=== PATIENT | male | born 1955 | race Caucasian/White ===

== ENCOUNTER 2017-10-08 10:34 | Observation (INO) ==
[2017-10-08] MEDS ORDERED: 0.9 % Sodium Chloride 1,000 ML IVC ONE (11:02)
[2017-10-08] MEDS ORDERED: Ondansetron 4 MG/2 ML VIAL IVP ONE (11:03)
--- NOTE | 2017-10-08 11:32 | Emergency Department Note ---
Disposition Clinical Impression: Weakness generalized, Opioid withdrawal, Hyponatremia, Abscess Disposition: Admitted As Inpatient Condition: Fair Time of Disposition: 15:16 General Adult HPI - General Chief complaint: ED Shortness of Breath/Dyspnea Stated complaint: cough,weakness Time Seen by Provider: 10/08/17 11:01 Source: EMS Limitations: no limitations Nursing Notes Reviewed: Yes Vital Signs Reviewed: Yes - History of Present Illness HPI Narrative: Patient is a 62-year-old male who presents to [facility] ED with a chief complaint of cough, generalized weakness. Patient admits to being an IV drug abuser. Most recently used heroin 1 week ago. States he feels like he is in withdrawal. Patient is tachycardic and feeling nauseated. States he has not been able to tolerate anything by mouth over the last several days. Denies being to the hospital in the past and does not have a primary care physician. Onset (ago): day(s) Radiation: non-radiation Pain Scale: 0 Consistency: constant Improves with: nothing Worsens with: nothing Associated symptoms: Reports: chest pain Treatments Prior to Arrival: none - Related Data Home Medications Medication Instructions Recorded Confirmed No Known Home Drugs 10/08/17 10/08/17 Allergies Allergy/AdvReac Type Severity Reaction Status Date / Time No Known Allergies Allergy Verified 10/08/17 10:41 All systems ED: reviewed and negative except as stated. Past Medical History - Past Medical History Attestation: Yes The following information was validated with the patient. Source: patient Medical history: Reports: no medical history Psychiatric history: Reports: no psych history - Social History Smoking Status: Current every day smoker Smokeless Tobacco Status: No Alcohol use: Reports: none Drug use: Reports: methamphetamine Physical Exam - General Limitations: no limitations General appearance: alert, in no apparent distress - Head Head exam: atraumatic, normocephalic, normal inspection - Eye Eye exam: Present: normal appearance, EOMI - ENT ENT exam: normal exam, normal oropharynx, mucous membranes moist - Neck Neck exam: Present: normal inspection, full ROM, trachea midline - Chest Chest inspection: Present: normal inspection, symmetric chest wall rise - Respiratory Respiratory exam: Present: normal lung sounds bilaterally - Cardiovascular Cardiovascular exam: Present: normal rhythm, tachycardia - Abdominal Exam Abdominal exam: Present: soft, Non-Tender. Absent: tenderness, distention, guarding, rebound, rigidity - Extremities Exam Extremities exam: Present: normal inspection, full ROM. Absent: tenderness, pedal edema - Back Exam Back exam: Present: normal inspection, full ROM. Absent: tenderness - Neurological Exam Neurological exam: Present: alert, oriented X3, other (generalized weakness) - Psychiatric Psychiatric exam: Present: normal affect, normal mood - Skin Skin exam: Present: warm, dry, intact, normal color, other (3 cm abscess overlying the right medial clavicle ) Course Course Narrative: Patient seen and examined. Cough, chest pain, generalized weakness. History of IV drug abuse. Concern for some withdrawal from heroin. We will start a peripheral IV line, given a liter IV fluid bolus and reassess vitals. BMP and troponin ordered. - Reevaluation(s) Reevaluation #1: Labwork shows hyponatremia with a corrected sodium of 128. Patient has received a 1 L bolus already. He is still feeling persistently nauseated. 8mg zofran ordered. Pt unable to tolerate PO challenge. Discussed with hospitalist who has accepted pt for admission. Will I&D abscess. Per hospitalist, would like aerobic and anaerobic cultures. Bactrim ordered. Time: 15:15 Vital Signs Temperature 98.2 F 10/08/17 10:42 Pulse Rate 102 10/08/17 10:42 Respiratory Rate 20 10/08/17 10:42 Blood Pressure 130/88 10/08/17 10:42 O2 Sat by Pulse Oximetry 94 10/08/17 10:42 Temperature 98.1 F 10/08/17 17:28 Pulse Rate 106 10/08/17 17:28 Respiratory Rate 16 10/08/17 17:28 Blood Pressure 117/77 10/08/17 17:28 O2 Sat by Pulse Oximetry 93 10/08/17 17:28 Oxygen Delivery Oxygen Delivery Room Air Procedures - Abscess I/D Consent obtained: verbal consent Site: chest Side (if applicable): right Local Anesthetic: lidocaine 1% Amount of Anesthesia Used (mL): 1 Technique: incised with #11 blade Packing used?: none Medical Decision Making - Medical Records Medical records reviewed: Yes I reviewed the patient's medical records. - Lab Data Lab results reviewed: Yes I reviewed the patient's lab results. Result diagrams: 10/08/17 15:40 10/08/17 16:16 Lab Results 10/08/17 10/08/17 Range/Units 10:49 11:10 Sodium 123 L (136-145) mEq/L Potassium 4.3 (3.5-5.1) mEq/L Chloride 91 L (98-107) mEq/L Carbon Dioxide 19 L (23-29) mEq/L BUN 27 H (8-23) mg/dL Creatinine 0.68 L (0.70-1.30) mg/dL Est GFR ( Amer) > 60 (> 60) Est GFR (Non-Af Amer) > 60 (> 60) BUN/Creatinine Ratio 40 H (6-26) Glucose 391 H (70-105) mg/dL POC Glucose 381 H (58-89) Calculated Osmolality 277 L (280-300) Calcium 9.0 (8.6-10.3) mg/dL Troponin I 0.03 (< 0.04) ng/mL - Radiology Data Radiology results reviewed: Yes I reviewed the patient's radiology results. Chest X-Ray 10/08/17 11:03 IMPRESSION: No acute process. D/ / 10/08/2017 12:23:26 Benjamin Quijano MD / latisha Interpreting Provider: Benjamin Quijano MD - EKG Data EKG #1 EKG attestation: Yes I reviewed and interpreted this EKG. EKG results narrative: EKG done at 1043 shows sinus tachycardia with a rate of [address] elevation or depression. Normal axis. No prior EKG for comparison. Attestation Statement - Attestation Attestation: I examined this patient and my medical decision-making was reviewed with the Resident Physician. I agree with the documented findings, disposition and treatment plan as described except to the extent set forth below. Hyponatremia still 127 after correction for hyperglycemia. 7d since last heroin dose, typical withdrawal symtoms. Significant hyperglycemia without DKA, no h/o DM. I was present and available for the I&D.
[2017-10-08 11:46] LABS: BUN/Creatinine Ratio 40 (6-26); Blood Urea Nitrogen 27 mg/dL (8-23); Carbon Dioxide 19 mEq/L (23-29); Chloride 91 mEq/L (98-107); Glucose 391 mg/dL (70-105); Osmolality,Calculated 277 (280-300); Potassium 4.3 mEq/L (3.5-5.1); Sodium 123 mEq/L (136-145); eGFR For African Americans > 60 (> 60); eGFR For Non-African Americans > 60 (> 60)
[2017-10-08 12:15] LABS: Troponin I 0.03 ng/mL (< 0.04)
[2017-10-08] MEDS ORDERED: Ondansetron 4 MG/2 ML VIAL IVP STA (12:59)
[2017-10-08] MEDS ORDERED: Dicyclomine 20 MG/2 ML AMPUL IM STA (13:02)
[2017-10-08] MEDS ORDERED: Sulfamethoxazole/Trimeth DS 1 EACH TABLET PO ONE (14:28)
[2017-10-08] MEDS ORDERED: Naloxone 0.4 MG/ML INJ IVP PRN (14:59)
[2017-10-08] MEDS ORDERED: 0.9 % Sodium Chloride 1,000 ML IVC SCH (15:00)
--- NOTE | 2017-10-08 15:16 | Electrocardiograph Report ---
[facility] Date: 2017-10-08 Pat Name: Dayday Lowery Department: 102 Room: Gender: M Dairy Farmer: : 1955 Requested By: Amelia Peralta Order Number: [id number] Reading MD: Jose Farrell MD Measurements Intervals [place] Rate: 101 P: 42 FL: 123 QRS: 20 QRSD: 80 T: 53 QT: 389 QTc: 447 Interpretive Statements SINUS TACHYCARDIA ABNORMAL RHYTHM ECG WARNING: DATA QUALITY MAY AFFECT INTERPRETATION INTERPRETATION BASED ON A DEFAULT AGE OF 40 YEARS Electronically Signed On 10-08-2017 15:13:57 EST by Jose Farrell MD
--- NOTE | 2017-10-08 15:24 | Internal Med History&Physical ---
<Deondre Ramos - Last Filed: 10/08/17 18:33> Date of Encounter: 10/08/17 Time of Encounter: 15:20 Assessment and Plan (1) Subcutaneous abscess Current visit: Yes Status: Acute Subcutaneous abscess of the right subclavian vein. H/O IVDU. He reports he last used heroin approximately 1-week ago and that he attempted to inject into his Rt subclavian vein. He has had the abscess and felt generalized weakness and fatigue since. -Abscess drained in the ED -Aerobic and anaerobic cultures sent -Vancomycin IVPB with PT to dose -CBCD now and in am, BMP in am, lactic acid now Qualifiers: Site of cutaneous abscess: other site Qualified Code(s): L02.818 - Cutaneous abscess of other sites (2) Hyponatremia Current visit: Yes Status: Acute Acute hyponatremia, likely caused by dehydration as he is reporting a decrease in oral intake for approximately 1-week. He may also have sepsis d/t a subcutaneous abscess secondary to IVDU which could also be contributing to his hyponatremia -NS 0.9% at 125ml/hr -check serum sodium Q6hrs -check TSH now (3) DM (diabetes mellitus) Current visit: Yes Status: Acute New diagnosis of DM. No prior history. Presents today with a serum blood glucose of 391 -HGB A1C in am -Sliding scale insulin coverage with AC/HS accucheck Qualifiers: Diabetes mellitus type: type 2 Diabetes mellitus complication status: without complication Diabetes mellitus terminal operator insulin use: without care home use Qualified Code(s): E11.9 - Type 2 diabetes mellitus without complications (4) Hyperglycemia Current visit: Yes Status: Acute New diagnosis of DM. Unclear if he has diabetes or if this is stress hyperglycemia associated with a potential septic infection from a subcutaneous abscess. The hyperglycemia is likely not contributing to hyponatremia as the serum osmolality is low. No prior h/o DM. See plan above (5) HTN (hypertension) Current visit: Yes Status: Acute Denies any h/o HTN. SBP has been stable with the exception of one reading indicating an SBP of 172/82 -Continue to monitor hemodynamic status -hold BP medications for now, consider adding lisinopril if he remains hypertensive Qualifiers: Hypertension type: essential hypertension Qualified Code(s): I10 - Essential (primary) hypertension (6) DVT prophylaxis Current visit: Yes Status: Acute Heparin 5000 units SC BID Internal Medicine - H&P: HPI Chief complaint: subcutaneous abscess Admitted From: Home Plans for Post Hospital Care: Home History of present illness: Mr. Lowery is a 62 year old male with no known prior medical history. He presents to [facility] today with generalized weakness, fatigue, non-productive cough , and pain and swelling as well as an abscess on his Rt subclavian. He reports that he is an IV heroin user and that he last used approximately 1 week ago. He last injected into his subclavian vein and since then he has had an abscess and felt weak and fatigued. He does report a h/o prior abscesses. He states that he is in withdrawal. He denies any fevers, chills, rigors, night sweats, CP, SOB, N/V/D, arthralgias or myalgias. He admits that he has had a decreased appetite and has not been able tolerate oral intake for the last several days. Past Med Surg Social Fam HX - Past Medical History Medical history: no medical history Psychiatric history: no psych history - Social History Smoking Status: Current every day smoker Smokeless Tobacco Status: No Alcohol use: none Drug use: methamphetamine - Family History Father Hx Family Cardiac Disorders: Yes (SD) - Additional Family History Additional family history: non contributory Internal Medicine - H&P: Meds No Known Home Drugs 10/08/17 [History] 3 Allergy/AdvReac Type Severity Reaction Status Date / Time No Known Allergies Allergy Verified 10/08/17 10:41 All Systems PM: A 10-system review of systems was performed and is negative for pertinent findings except as documented above in the HPI. - Constitutional Constitutional: as per HPI - EENT Eyes: as per HPI - Cardiovascular Cardiovascular ROS IM: no chest pain, no diaphoresis, no dyspnea, no lightheadedness, no palpitations, no syncope - Respiratory Respiratory: cough (non-productive), no dyspnea, no wheezing, no excessive phlegm production - Gastrointestinal Gastrointestinal: no abdominal pain, no diarrhea, no hematemesis, no hematochezia, no melena, no nausea, no vomiting - Musculoskeletal Musculoskeletal ROS IM: no numbness, no tingling - Integumentary Integumentary IM: erythema, new lesions - Constitutional Vitals: Temp Pulse Resp BP Pulse Ox 98.2 F 100 18 172/82 94 03/07/18 10:42 10/08/17 14:22 10/08/17 14:22 10/08/17 14:22 10/08/17 14:22 General appearance: Present: cooperative, A&O X 3, no acute distress, answers questions appropriately - Head Head exam: Present: atraumatic, normocephalic - Respiratory Respiratory exam: Present: CTAB. Absent: accessory muscle use, rales, rhonchi, wheezes - Cardiovascular Cardiovascular exam: Present: RRR, +S1, +S2. Absent: diastolic murmur, gallop, rubs, systolic murmur - GI/Abdominal GI/Abdominal exam: Present: normal bowel sounds, soft, no peritoneal signs. Absent: distended, tenderness - Extremities Exam Extremities exam: Present: warm, radial pulses palpable and symmetrical. Absent : calf tenderness, cyanotic, pedal edema - Neurological Exam Neurological exam: Present: alert, oriented X3. Absent: facial droop, speech deficit - Skin Skin exam: Present: erythema - Expanded Skin Exam Type of lesion: Present: abscess Description of rash: Present: erythematous, fluctuant, size (approximetely 1"x1 "), swelling, tenderness Full body front and back image: 1 - abscess, erythematous and fluctuant Internal Med - H&P Results - Labs CBC & Chem 7: 10/08/17 15:40 10/08/17 16:16 Labs: BMP 10/08/17 11:10 Sodium 123 L Potassium 4.3 Chloride 91 L Carbon Dioxide 19 L BUN 27 H Creatinine 0.68 L Glucose 391 H Calcium 9.0 Cardiac Enzymes 10/08/17 Range/Units 11:10 Troponin I 0.03 (< 0.04) ng/mL - Impressions ITS Impressions Chest X-Ray 10/08/17 11:03 IMPRESSION: No acute process. D/ / 10/08/2017 12:23:26 Benjamin Quijano MD / latisha Interpreting Provider: Benjamin Quijano MD <Kenya Garcia - Last Filed: 10/08/17 18:41> Date of Encounter: 10/08/17 Internal Medicine - H&P: HPI History of present illness: Mr. Lowery is a 62 year old male All Systems PM: A 10-system review of systems was performed and is negative for pertinent findings except as documented above in the HPI. - Constitutional Vitals: Temp Pulse Resp BP Pulse Ox 98.1 F 106 16 117/77 93 10/08/17 17:28 10/08/17 17:28 10/08/17 17:28 10/08/17 17:28 10/08/17 17:28 Internal Med - H&P Results - Labs CBC & Chem 7: 10/08/17 15:40 10/08/17 16:16 Labs: Short CBC 10/08/17 Range/Units 15:40 WBC 15.3 H (4.3-11.1) K/mcL Hgb 15.2 (12.9-16.9) g/dL Hct 44.9 (37.5-50.1) % Plt Count 238 (140-400) K/mcL Neutrophils # 12.0 H (1.6-8.9) K/mcL BMP 10/08/17 16:16 Sodium 127 L - Attending Attestation I have personally performed a face to face evaluation on this patient. I have reviewed and agree with the care plan provided by YASEMIN Ramos. History and Exam by me shows: Mr. Lowery is a 62 year old male with known PMH of IV drug abuse pt presented to ER with Rt neck abscess and feeling weak and lethargic from last one week. Gen: A, A< O x3 Chest: Diminished BS b/l Neck: 1.5cm size abscess over Rt side of neck at Jugular vein region Heart: S1S2+ NO murmurs a/p 1. Acute Rt side of neck abscess s/p I & D Empirical abx Vancomycin IV hydration 2. IV drug abuse blood cx drawn 3. New onset DM2 check HbA1C ISS for now 4. Hyponatremia- mild due to dehydration on IVF
[2017-10-08] MEDS ORDERED: D5% in Water 1,000 ML IVC PRN (15:37)
[2017-10-08] MEDS ORDERED: Dextrose Gel 15 GM/37.5 ML TUBE PO PRN ×2 (15:37)
[2017-10-08] MEDS ORDERED: *HR* Dextrose 50 % in Water (Syg) 50 ML SYRINGE IVP PRN (15:37)
[2017-10-08 16:05] LABS: Basophils % 0.2 %; Eosinophils % 0.2 %; Hematocrit 44.9 % (37.5-50.1); Hemoglobin 15.2 g/dL (12.9-16.9); Immature Granulocytes % 0.5 % (0-4); Lymphocytes # 2.7 K/mcL (0.6-4.6); Lymphocytes % 17.4 %; Mean Corpuscular HGB Conc 33.9 g/dL (31.6-35.5); Mean Corpuscular Hemoglobin 27.4 pg (28.0-33.3); Mean Platelet Volume 11.6 fL (9.4-12.4); Monocytes # 0.5 K/mcL (0.0-1.3); Monocytes % 3.2 %; Platelet Count 238 K/mcL (140-400); Red Blood Count 5.54 M/mcL (4.19-5.50); Red Cell Distribution Width 13.3 % (11.5-14.5); Segmented Neutrophils % 78.5 %
[2017-10-08 16:42] LABS: Large Platelets Present (Not Present); Platelet Estimate Normal (Normal); Toxic Granulation Present (Not Present)
[2017-10-08] MEDS: *HR* Heparin 5,000 UNIT/ML VIAL SQ SCH (17:42)
[2017-10-08] MEDS: Insulin LISPRO 300 UNITS/3 ML VIAL SQ SCH (17:42)
[2017-10-08] MEDS ORDERED: Melatonin 3 MG TABLET PO SCH (21:00)
[2017-10-08] MEDS ORDERED: Insulin LISPRO 300 UNITS/3 ML VIAL SQ SCH (21:00)
[2017-10-09] MEDS ORDERED: Ondansetron ODT 4 MG TAB.RAPDIS SL PRN (04:18)
[2017-10-09] MEDS: *HR* Heparin 5,000 UNIT/ML VIAL SQ SCH ×2 (05:51→17:39)
[2017-10-09] MEDS: Insulin LISPRO 300 UNITS/3 ML VIAL SQ SCH ×3 (08:45→17:38)
--- NOTE | 2017-10-09 09:27 | Internal Med Progress Note ---
Date of Encounter: 10/09/17 Time of Encounter: 09:25 - Assessment and plan (1) Subcutaneous abscess Current Visit: Yes Status: Acute Assessment and plan: We will start a combination of Levaquin, and IV vancomycin. We will reassess the abscess area again tomorrow if he needs further I&D. Blood cultures are pending, abscess cultures are also pending. Again abscessed area is in the right supraclavicular area. Qualifiers: Site of cutaneous abscess: other site Qualified Code(s): L02.818 - Cutaneous abscess of other sites (2) Heroin abuse Current Visit: Yes Status: Chronic Assessment and plan: No significant signs of withdrawal, (3) DM (diabetes mellitus) Current Visit: Yes Status: Acute Assessment and plan: This is a new diagnosis for him. He is most likely not an insulin candidate, therefore the hospital will try to start oral hypoglycemics. He did not seem being compliant at home with either sugar checks and monitoring. We will have nutritional counseling today, changing to diabetic diet. Continue insulin coverage as needed. 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 We will repeat his chemistry tomorrow morning. - Subjective Interval history: He admits still feeling somewhat rough. Just no energy. He admits having fever prior to coming to the emergency room. IV line nurse, was in the room placing a more sustained access area, due to poor peripheral access. He reports feeling some of the effects of her withdrawal, denies using other drugs, only admits shooting up around his neck and his shoulders, not in the lower extremities. Denies previous history of diabetes. - Constitutional Vitals: Temp Pulse Resp BP Pulse Ox 98.1 F 86 17 158/92 94 10/09/17 06:49 10/09/17 06:49 10/09/17 06:49 10/09/17 06:49 10/09/17 06:49 General appearance: Present: cooperative, A&O X 3, no acute distress, answers questions appropriately Exam: Does not look acutely ill just more fatigued. - Eye Eye exam: Present: EOMI, conjuntiva pink, sclera anicteric - ENT ENT exam: Present: mucous membranes moist - Neck Neck exam general surgery: Present: supple, trachea midline Additional comments: Some discomfort with range of motion of the neck, again related to the right mid clavicular abscess. - Respiratory Respiratory exam: Present: CTAB. Absent: stridor, wheezes, tachypnea - Cardiovascular Cardiovascular exam: Present: RRR Additional comments: Occasional ectopic beats. - GI/Abdominal GI/Abdominal exam: Present: normal bowel sounds, soft, no peritoneal signs - Skin Skin exam: Present: dry, warm. Absent: rash Additional comments: Pancho sized abscess area, right mid clavicle, status post I&D, no purulence being expressed at this time, little to no erythema with this. Her also scattered abrasions to some of the dorsal hands, possible review as injection sites as well, versus a small, pea-sized nodule in the left supraclavicular fossa, again consistent with probably a recent needle stick. No purulence noted. Internal Medicine: Result - Labs CBC & Chem 7: 10/08/17 15:40 10/08/17 21:57 Labs: Short CBC 10/08/17 Range/Units 15:40 WBC 15.3 H (4.3-11.1) K/mcL Hgb 15.2 (12.9-16.9) g/dL Hct 44.9 (37.5-50.1) % Plt Count 238 (140-400) K/mcL Neutrophils # 12.0 H (1.6-8.9) K/mcL BMP 10/08/17 10/08/17 16:16 21:57 Sodium 127 L 128 L Consult Discharge Plan - Plan Referrals: NONE,PCP [Primary Care Provider] - [facility] Up [Family Provider] -
[2017-10-09] MEDS ORDERED: levoFLOXacin 500 MG TABLET PO SCH (09:30)
[2017-10-09] MEDS ORDERED: *HR* Glimepiride 4 MG TABLET PO SCH (10:00)
[2017-10-09 18:37] VITALS: BP 124/81
[2017-10-09] MEDS ORDERED: Aminoglycoside Consult 1 EACH MC ONE (19:59)
== END 2017-10-09 20:00 | disposition left against medical advice (07) ==
LOC: 3BNU 10:34 → EMEROO 10:34 → 3BNU 15:50
PROVIDERS: ADMIT Family Medicine; ATTEND Registered Nurse

== ENCOUNTER 2017-10-14 17:26 | Inpatient (IN) ==
[2017-10-14 23:23] LABS: Hematocrit 36.8 % (37.5-50.1); Mean Corpuscular HGB Conc 32.9 g/dL (31.6-35.5); Mean Corpuscular Hemoglobin 27.2 pg (28.0-33.3); Mean Corpuscular Volume 82.7 fL (83.0-100.0); Mean Platelet Volume 10.6 fL (9.4-12.4); Platelet Count 285 K/mcL (140-400); Red Blood Count 4.45 M/mcL (4.19-5.50); Red Cell Distribution Width 13.2 % (11.5-14.5)
[2017-10-14 23:24] LABS: Hemoglobin 12.1 g/dL (12.9-16.9)
--- NOTE | 2017-10-14 23:31 | Emergency Department Note ---
Disposition Clinical Impression: Abscess Disposition: Admitted As Inpatient Condition: Good General Adult HPI - General Chief complaint: ED General Medical Stated complaint: "infection in neck" Time Seen by Provider: 10/14/17 22:46 Source: patient Mode of arrival: ambulatory Limitations: no limitations Nursing Notes Reviewed: Yes Vital Signs Reviewed: Yes - History of Present Illness HPI Narrative: 62-year-old male with a history of IV drug use presents to the emergency department for evaluation of abscesses to his bilateral neck from injecting heroin. Patient states abscesses have been there for quite some time, and he has not used heroin for roughly 7 days. He states the abscess to his right clavicular area near his neck with constant draining of purulent drainage, while the abscesses left side of his neck subclavicular area without drainage. Patient denies fever, chills, chest pain, shortness of breath, difficulty breathing, coughing, HEENT complaints, abdominal pain, nausea, and vomiting, diarrhea. He states he has not been sick a lot using heroin. Patient was here on Thursday 10/12 for evaluation of the abscesses, he states that he left AMA prior to treatment, he states he is unsure if he would have been admitted or not. He states he left because he was in withdrawals is having a difficult time, and he left but did not use heroin after. He states he would not leave AMA at this time. Onset (ago): day(s) Location: neck Radiation: non-radiation Pain Severity: moderate, severe Pain Scale: 9 Quality: stabbing, aching Consistency: constant Improves with: nothing Worsens with: nothing Associated symptoms: Reports: denies other symptoms Treatments Prior to Arrival: none - Related Data Home Medications Medication Instructions Recorded Confirmed No Known Home Drugs 10/08/17 10/08/17 Allergies Allergy/AdvReac Type Severity Reaction Status Date / Time No Known Allergies Allergy Verified 10/08/17 10:41 All systems ED: reviewed and negative except as stated. Review of Systems: As Per HPI Constitutional: Reports: as per HPI. Denies: fever, chills, weakness, weight change Cardiovascular: Reports: as per HPI. Denies: chest pain, palpitations, edema, syncope Respiratory: Reports: as per HPI. Denies: cough, dyspnea, wheezes, hemoptysis, sputum production Gastrointestinal: Denies: abdominal pain, nausea, vomiting, diarrhea Musculoskeletal: Denies: back pain, neck pain Integumentary: Reports: as per HPI, other (Abscesses to bilateral anterior subclavicular area) Neurological: Denies: headache, weakness, numbness Past Medical History - Past Medical History Attestation: Yes The following information was validated with the patient. Medical history: Reports: no medical history Surgical history: Reports: no surgical history Psychiatric history: Reports: no psych history - Social History Smoking Status: Current every day smoker Smokeless Tobacco Status: No Alcohol use: Reports: none Drug use: Reports: methamphetamine, IV Drug Use Physical Exam - General Limitations: no limitations General appearance: alert - Head Head exam: atraumatic, normocephalic, normal inspection - Neck Neck exam: Present: normal inspection, full ROM, trachea midline, tenderness ( Right-sided muscles due to abscess and base of neck by subclavicular area) - Expanded Neck Exam Neck exam focused ED: Present: tenderness (other) (see image) 1 - draining abscess with surrounding erythema 2 - indurated erythemic area - Chest Chest inspection: Present: normal inspection, symmetric chest wall rise - Respiratory Respiratory exam: Present: other - Expanded Respiratory Exam Location: rhonchi: Left, Upper, Lower - Cardiovascular Cardiovascular exam: Present: regular rate, normal rhythm, normal heart sounds, other (1+ pitting edema bilateral lower exterminate his) - Abdominal Exam Abdominal exam: Present: soft, Non-Tender. Absent: tenderness, distention, guarding, rebound, rigidity - Neurological Exam Neurological exam: Present: alert, oriented X3, CN II-XII intact - Psychiatric Psychiatric exam: Present: normal affect, normal mood, flat affect - Skin Skin exam: Present: warm, dry, intact, normal color Course Course Narrative: 62-year-old male with a history of IV drug use presents to the emergency department for evaluation of abscesses to his bilateral neck from injecting heroin. Patient states abscesses have been there for quite some time, and he has not used heroin for roughly 7 days. He states the abscess to his right clavicular area near his neck with constant draining of purulent drainage, while the abscesses left side of his neck subclavicular area without drainage. Patient denies fever, chills, chest pain, shortness of breath, difficulty breathing, coughing, HEENT complaints, abdominal pain, nausea, and vomiting, diarrhea. He states he has not been sick a lot using heroin. Patient was here on Thursday 10/12 for evaluation of the abscesses, he states that he left AMA prior to treatment, he states he is unsure if he would have been admitted or not. He states he left because he was in withdrawals is having a difficult time, and he left but did not use heroin after. He states he would not leave AMA at this time. Thin, elderly looking male, well-hydrated in no acute distress, appears tired. Respirations are easy and even. Right neck by subclavicular bone with open, flush, erythemic area draining thin pearly-barrios fluid, surrounded by large area of erythema with pain with palpation in the erythemic area areas. Left neck by subclavicular bone with raised, indurated, erythemic area without drainage, area tender to touch. Lungs with rhonchi to the entire left side, patient states that he is a daily smoker. Rest of exam negative. We will obtain basic labs and a chest x-ray. Concern for systemic infection, sepsis, pneumonia, cellulitis from lack of care. Less than patient was here he was very hyponatremic after and during withdrawals. - Reevaluation(s) Reevaluation #1: Labs reveal hyponatremia, CBC within normal limits. Chest x-ray negative. Patient does not meet sepsis criteria, however I am concerned that patient is to be discharged and he will not have proper follow up or take his antibiotics as prescribed. Already he states the areas on his neck have increased in size exponentially since he was here on Friday which is what prompted his return today. My concern is if we do not keep him for IV antibiotics that these areas will increase in size and have the potential to affect his airway if not properly manage. Patient cannot really afford treatment failure at this point as his airway may be become obstructed, he may become septic. We will admit patient to hospitalist services for IV antibiotics. We will begin empiric antibiotics at this time with think myosin. I do not feel that blood cultures are indicated as patient does not meet sepsis criteria therefore we will go ahead and start the vancomycin down here in the ER. Time: 02:45 Vital Signs Temperature 98.1 F 10/14/17 18:38 Pulse Rate 77 10/14/17 18:38 Respiratory Rate 14 10/14/17 18:38 Blood Pressure 109/75 10/14/17 18:38 O2 Sat by Pulse Oximetry 98 10/14/17 18:38 Temperature 98.1 F 10/14/17 18:38 Pulse Rate 60 10/15/17 01:36 Respiratory Rate 14 10/15/17 02:31 Blood Pressure 106/68 10/15/17 02:31 O2 Sat by Pulse Oximetry 97 10/15/17 01:36 Oxygen Delivery Oxygen Delivery Room Air Medical Decision Making - Medical Records Medical records reviewed: Yes I reviewed the patient's medical records. - Lab Data Lab results reviewed: Yes I reviewed the patient's lab results. Result diagrams: 10/14/17 23:12 10/14/17 23:12 Lab Results 10/14/17 10/14/17 Range/Units 23:12 23:12 WBC 6.6 D (4.3-11.1) K/mcL RBC 4.45 (4.19-5.50) M/mcL Hgb 12.1 L D (12.9-16.9) g/dL Hct 36.8 L (37.5-50.1) % MCV 82.7 L (83.0-100.0) fL MCH 27.2 L (28.0-33.3) pg MCHC 32.9 (31.6-35.5) g/dL RDW 13.2 (11.5-14.5) % Plt Count 285 (140-400) K/mcL MPV 10.6 (9.4-12.4) fL Sodium 129 L (136-145) mEq/L Potassium 4.7 (3.5-5.1) mEq/L Chloride 95 L (98-107) mEq/L Carbon Dioxide 31 H (23-29) mEq/L BUN 16 (8-23) mg/dL Creatinine 0.64 L (0.70-1.30) mg/dL Est GFR ( Amer) > 60 (> 60) Est GFR (Non-Af Amer) > 60 (> 60) BUN/Creatinine Ratio 25 (6-26) Glucose 365 H (70-105) mg/dL Calculated Osmolality 284 (280-300) Calcium 9.2 (8.6-10.3) mg/dL - Radiology Data Radiology results reviewed: Yes I reviewed the patient's radiology results. Chest X-Ray 10/14/17 23:24 IMPRESSION: No acute cardiopulmonary disease. D/ / Omid Agee MD / Omid Agee MD Interpreting Provider: Omid Agee MD Soft Tissue Neck CT 10/15/17 01:53 IMPRESSION: Heterogeneous mass within the right supraclavicular space measuring 3.8 cm located superficially within the skin and subcutaneous tissues. This finding likely represents an abscess. Similar appearing heterogeneous mass is identified within the anterolateral aspect of the left side of the neck just above the supraclavicular space. This superficial collection measures 1.9 cm and likely represent additional abscess D/ / Moe Garcia MD / Moe Garcia MD Interpreting Provider: Moe Garcia MD Attestation Statement - Attestation Attestation: I, Manpreet Rangel MD, personally evaluated this patient and discussed their management with the midlevel provicer, PAC/MANAGER TRANSPORTATION. I reviewed the midlevel provider 's note and agree with the documented findings, medical decision making, and plan of care. 62-year-old male presents to the emergency department with a complaint of abscesses on the sides of his neck secondary to injecting heroin. Symptoms started about 2 weeks ago. Initially was on the left side now involves the right side. There has been drainage from the right side. He denies any fever. He was recently seen here in the emergency department and refused admission and left AMA. No difficulty swallowing or breathing. No chest pain or shortness of breath. On examination patient is a well-developed well-nourished male in no acute distress. He is alert and oriented 3. There is no cyanosis or diaphoresis. Patient has an abscess to the left lower lateral neck which is about 2-3 cm in diameter. It is tender and indurated. No fluctuance or drainage. There is also a larger area to the base of the neck on the right side which has been draining spontaneously. There is mild fluctuance. This area is slightly larger at about 3-4 cm with induration and erythema and mild fluctuance. Breath sounds are clear and equal bilaterally. Heart regular rate and rhythm. Abdomen soft and nontender with normal bowel sounds. There is 1+ pitting edema of the lower extremities bilaterally. Labs reviewed. Sodium 129. WBC normal. Patient received IV fluids and IV vancomycin. The hospitalist, Dr. Christianson, was consulted and accepted admission of patient.
[2017-10-14 23:44] LABS: BUN/Creatinine Ratio 25 (6-26); Blood Urea Nitrogen 16 mg/dL (8-23); Calcium 9.2 mg/dL (8.6-10.3); Carbon Dioxide 31 mEq/L (23-29); Chloride 95 mEq/L (98-107); Glucose 365 mg/dL (70-105); Osmolality,Calculated 284 (280-300); Potassium 4.7 mEq/L (3.5-5.1); Sodium 129 mEq/L (136-145); eGFR For African Americans > 60 (> 60); eGFR For Non-African Americans > 60 (> 60)
[2017-10-15] MEDS ORDERED: 0.9 % Sodium Chloride 1,000 ML IVC ONE (00:05)
[2017-10-15] MEDS ORDERED: Naloxone 0.4 MG/ML INJ IVP PRN ×2 (03:38→07:58)
[2017-10-15] MEDS ORDERED: Acetaminophen 325 MG TABLET PO PRN (03:38)
[2017-10-15] MEDS ORDERED: *HR* Dextrose 50 % in Water (Syg) 50 ML SYRINGE IVP PRN (03:42)
[2017-10-15] MEDS ORDERED: Dextrose Gel 15 GM/37.5 ML TUBE PO PRN ×2 (03:42)
[2017-10-15] MEDS ORDERED: D5% in Water 1,000 ML IVC PRN (03:42)
[2017-10-15] MEDS ORDERED: D5% in 0.45% NACL 1,000 ML IVC SCH (03:45)
[2017-10-15] MEDS: *HR* Enoxaparin 40 MG/0.4 ML SYRINGE SQ SCH (05:59)
[2017-10-15] MEDS ORDERED: Insulin LISPRO 300 UNITS/3 ML VIAL SQ SCH ×5 (06:00→21:00)
--- NOTE | 2017-10-15 07:47 | Internal Med History&Physical ---
Date of Encounter: 10/15/17 Time of Encounter: 07:41 Assessment and Plan (1) Abscess Current visit: Yes Status: Acute Secondary to IVDA, CT soft tissue neck findings consistent with bilateral abscess in supraclavicular regions. Continue vancomycin Glucose control to promote wound healing - insulin with sliding scale Check HIV and syphilis, LFTs recheck labs in AM (2) Hyponatremia Current visit: No Status: Acute On admission sodium was 129, corrected after hyperglycemia is 133. Continue IV fluid. DC D5W, switch to normal saline. Recheck in AM (3) DM (diabetes mellitus) Current visit: No Status: Acute Newly diagnosed Check A1C Diabetic diet basal insulin based on weight, TDD insulin is 34 units Will do 15 units Levemir basal with 5 units humalog with meals sliding scale Qualifiers: Diabetes mellitus type: type 2 Diabetes mellitus skilled nursing insulin use: without termite treater use Diabetes mellitus complication status: without complication Qualified Code(s): E11.9 - Type 2 diabetes mellitus without complications (4) HTN (hypertension) Current visit: No Status: Acute Currently normal to low BP. Qualifiers: Hypertension type: essential hypertension Qualified Code(s): I10 - Essential (primary) hypertension (5) Heroin abuse Current visit: No Status: Chronic Check HIV, hepatitis panel, syphilis. Serum drug screen (6) DVT prophylaxis Current visit: No Status: Acute Levaquin 40 mg daily Internal Medicine - H&P: HPI History of present illness: 62-year-old male with a history of IV drug use presented to the emergency department for evaluation of abscesses to his bilateral neck from injecting heroin. Symptoms started one week ago. Located bilaterally in clavicular area with drainage. He denies fevers/chills, n/v, change in appetite, SOB, dysphasia , odynophasia, cough. He presented to ED 10/12 for abscess but left AMA because he was in withdrawals and does not intend to leave AMA today. In ED CT of neck showed 3.8 cm mass consistent with abscess on left and and 1.9 cm superficial mass on right consistent with abscess. In ED Sodium low at 129, corrected 133, glucose was elevated at 365. Patient states hes a newly diagnosed diabetic. Past Med Surg Social Fam HX - Past Medical History Medical history: no medical history Psychiatric history: no psych history - Past Surgical History Surgical History: no surgical history - Social History Smoking Status: Current every day smoker Smokeless Tobacco Status: No Alcohol use: none Drug use: methamphetamine, IV Drug Use - Family History Father Hx Family Cardiac Disorders: Yes ([place]) Internal Medicine - H&P: Meds No Known Home Drugs 10/08/17 [History] 3 Allergy/AdvReac Type Severity Reaction Status Date / Time No Known Allergies Allergy Verified 10/08/17 10:41 All Systems PM: A 10-system review of systems was performed and is negative for pertinent findings except as documented above in the HPI. - Constitutional Constitutional: no anorexia, no chills, no weight loss (though it is reported that he has had weight loss) - EENT Eyes: no change in vision, no discharge, no pain, no photophobia Ears: no ear discharge, no ear pain, no tinnitus Nose, mouth and throat: neck mass (bilateral superficial neck lumps with purulent drainage.d) - Cardiovascular Cardiovascular ROS IM: no chest pain, no diaphoresis, no dyspnea, no lightheadedness, no palpitations, no syncope - Respiratory Respiratory: no cough, no dyspnea, no wheezing, no excessive phlegm production - Gastrointestinal Gastrointestinal: no abdominal pain, no diarrhea, no hematemesis, no hematochezia, no melena, no nausea, no vomiting - Musculoskeletal Musculoskeletal ROS IM: no numbness, no tingling - Integumentary Integumentary IM: no rash, no unusual bruising - Neurological Neurological ROS: no confusion, no convulsions, no focal weakness, no numbness, no tingling, no tremor(s) - Constitutional Vitals: Temp Pulse Resp BP Pulse Ox 98.1 F 59 14 92/67 97 10/15/17 07:00 10/15/17 07:00 10/15/17 07:00 10/15/17 07:00 10/15/17 07:00 - Head Head exam: Present: atraumatic, normocephalic - Eye Eye exam: Present: PERRL, conjuntiva pink, sclera anicteric Pupils: Present: PERRL - Neck Neck exam general surgery: Present: supple, trachea midline. Absent: lymphadenopathy - Respiratory Respiratory exam: Present: CTAB. Absent: accessory muscle use, rales, rhonchi, wheezes - Cardiovascular Cardiovascular exam: Present: RRR, +S1, +S2. Absent: diastolic murmur, gallop, rubs, systolic murmur - GI/Abdominal GI/Abdominal exam: Present: normal bowel sounds, soft, no peritoneal signs. Absent: distended, tenderness - Extremities Exam Extremities exam: Present: warm, radial pulses palpable and symmetrical. Absent : calf tenderness, cyanotic, pedal edema - Neurological Exam Neurological exam: Present: CN II-XII intact, oriented X3, no focal deficits. Absent: pronater drift, facial droop, speech deficit - Skin Skin exam: Present: dry, intact Additional comments: bilateral mass superficially on clavicular region with dry purulent drainage on bandages Internal Med - H&P Results - Labs CBC & Chem 7: 10/14/17 23:12 10/14/17 23:12
[2017-10-15] MEDS ORDERED: Ondansetron 4 MG/2 ML VIAL IVP PRN (08:04)
[2017-10-15] MEDS ORDERED: Insulin DETEMIR 100 UNIT/ML X5UNITS SQ ONE ×2 (08:04→09:38)
[2017-10-15] MEDS: 0.9 % Sodium Chloride 1,000 ML IVC SCH ×2 (09:23→20:03)
--- NOTE | 2017-10-15 10:07 | General Surgery Consult Note ---
Date of Encounter: 10/15/17 Time of Encounter: 09:30 Assessment and Plan (1) Neck abscess Current Visit: Yes Status: Acute Bilateral neck abscess Risks, benefits, alternatives, expected outcomes have been reviewed with the patient and he is in agreement to proceed with incision and drainage of both abscesses at the bedside today IV antibiotics- Vancomycin initiated per hospitalist Supportive care Daily wound care Await culture results (2) Heroin abuse Current Visit: No Status: Chronic History of Present Illness Consult date: 10/15/17 Reason for consult: other (Bilateral neck abscess) Requesting physician: Gregory Macias History of present illness: Mr. Lowery is a 62 year old male presented to the emergency department for evaluation of bilateral neck abscesses secondary to injecting heroin. He states that the abscesses have been present for approximately 2 weeks with the right being present longer than the left. He states that the right abscess has drained spontaneously on its own. He states that he has a history of an abscess in his right arm which he drained himself. He denies any fevers or chills. He denies any shortness of breath or chest pain. He denies any difficulty with swallowing. He denies any nausea or vomiting or changes in appetite. He denies any changes in bowel habits. He does report 100 pound weight loss over the last 6 months which she attributes to his heroin use. He did present to the emergency department on 10/12/2017 for evaluation of these abscesses but left AMA. He has been admitted to the hospitalist service for evaluation and treatment. We have been asked to see and evaluate the patient for possible intervention and drainage of his neck abscesses Past Med Surg Social Fam HX - Past Medical History Source: patient Medical history: no medical history Psychiatric history: no psych history - Past Surgical History Surgical History: no surgical history - Social History Smoking Status: Current every day smoker Smokeless Tobacco Status: No Alcohol use: none Drug use: methamphetamine, IV Drug Use Current living situation: Home - Independent Activity Level: Independent ambulation - Family History Father Hx Family Cardiac Disorders: Yes ([place]) Medications and Allergies No Known Home Drugs 10/08/17 [History] 3 Allergy/AdvReac Type Severity Reaction Status Date / Time No Known Allergies Allergy Verified 10/08/17 10:41 Review of Systems All systems PM: reviewed and no additional remarkable complaints except as stated (in the HPI) All systems PM: The remainder of the systems were reviewed and are negative General Surgery Exam Initial Vital Signs Temp Pulse Resp BP Pulse Ox 98.1 F 77 14 109/75 98 10/14/17 18:38 03 18:38 18 18:38 10/14/17 18:38 10/14/17 18:38 - General physical appearance well developed, no distress, no pain - Eyes normal ocular movement - ENT normal mucosa, atraumatic, normocephalic - Neck trachea midline, other (Bilateral neck abscesses with fluctuance noted, minimal erythema without induration present (left greater than right), tender to evaluation) - Respiratory normal respiratory effort, clear to auscultation - Cardiovascular Cardiovascular exam: Present: RRR - Abdomen Abdomen general surgery: Present: bowel sounds present, soft, non tender - Integumentary Integumentary general surgery: Present: warm and dry - Neurologic Present: CN 2-12 grossly intact - Psychiatric Psychiatric general surgery: Present: appropriate, oriented to person, oriented to place, oriented to time, speech is normal, memory intact Exam Initial Vital Signs Temp Pulse Resp BP Pulse Ox 98.1 F 77 14 109/75 98 10/14/17 18:38 18 18:38 10/14/17 18:38 10/14/17 18:38 10/14/17 18:38 Results - Labs 10/15/17 10:06 10/15/17 10:06 Abnormal lab results Hgb 12.1 g/dL (12.9-16.9) L D 10/14/17 23:12 Hct 36.8 % (37.5-50.1) L 10/14/17 23:12 MCV 82.7 fL (83.0-100.0) L 10/14/17 23:12 MCH 27.2 pg (28.0-33.3) L 10/14/17 23:12 Sodium 129 mEq/L (136-145) L 10/14/17 23:12 Chloride 95 mEq/L (98-107) L 10/14/17 23:12 Carbon Dioxide 31 mEq/L (23-29) H 10/14/17 23:12 Creatinine 0.64 mg/dL (0.70-1.30) L 10/14/17 23:12 Glucose 365 mg/dL (70-105) H 10/14/17 23:12 POC Glucose 283 (58-89) H 10/15/17 04:38 All other labs normal. - Imaging Additional studies: Chest X-Ray 10/14/17 23:24 IMPRESSION: No acute cardiopulmonary disease. D/ / Omid Agee MD / Omid Agee MD Interpreting Provider: Omid Agee MD Soft Tissue Neck CT 10/15/17 01:53 IMPRESSION: Heterogeneous mass within the right supraclavicular space measuring 3.8 cm located superficially within the skin and subcutaneous tissues. This finding likely represents an abscess. Similar appearing heterogeneous mass is identified within the anterolateral aspect of the left side of the neck just above the supraclavicular space. This superficial collection measures 1.9 cm and likely represents additional abscess. D/ / 10/15/2017 07:47:09 Moe Garcia MD / srinivasan Interpreting Provider: Moe Garcia MD Consult Discharge Plan - Plan Referrals: NONE,PCP [Primary Care Provider] - [place] Up [Family Provider] - - Attending Attestation For this encounter, I have reviewed the [employer] WAREHOUSE MANAGER or PA documentation, treatment plan, and medical decision making; and I have had face to face time with this patient.
[2017-10-15 10:28] LABS: Basophils # 0.1 K/mcL (0.0-0.2); Basophils % 0.6 %; Eosinophils # 0.1 K/mcL (0.0-0.6); Eosinophils % 1.8 %; Hematocrit 33.6 % (37.5-50.1); Hemoglobin 11.1 g/dL (12.9-16.9); Immature Granulocytes % 0.4 % (0-4); Lymphocytes # 3.9 K/mcL (0.6-4.6); Lymphocytes % 49.6 %; Mean Corpuscular Volume 81.8 fL (83.0-100.0); Mean Platelet Volume 10.5 fL (9.4-12.4); Monocytes # 0.7 K/mcL (0.0-1.3); Monocytes % 8.8 %; Neutrophils # 3.1 K/mcL (1.6-8.9); Nucleated Red Blood Cells 0.3 /100 WBC (0); Platelet Count 325 K/mcL (140-400); Red Blood Count 4.11 M/mcL (4.19-5.50); Red Cell Distribution Width 13.2 % (11.5-14.5); Segmented Neutrophils % 38.8 %
[2017-10-15 10:30] LABS: INR 1.1; Prothrombin Time 12.2 Seconds (9.4-12.1)
[2017-10-15 10:55] LABS: Alanine Aminotransferase 23 Units/L (7-52); Albumin 2.8 g/dL (3.5-5.7); Alkaline Phosphatase 66 Units/L (34-104); Aspartate Amino Transferase 20 Units/L (13-39); BUN/Creatinine Ratio 25 (6-26); Blood Urea Nitrogen 12 mg/dL (8-23); Calcium 8.4 mg/dL (8.6-10.3); Carbon Dioxide 31 mEq/L (23-29); Chloride 101 mEq/L (98-107); Globulin 2.8 g/dL (2.4-3.5); Glucose 100 mg/dL (70-105); Magnesium 1.8 mg/dL (1.6-2.6); Osmolality,Calculated 278 (280-300); Potassium 3.6 mEq/L (3.5-5.1); Sodium 134 mEq/L (136-145); Total Protein 5.6 g/dL (6.4-8.9); eGFR For African Americans > 60 (> 60); eGFR For Non-African Americans > 60 (> 60)
[2017-10-15 11:31] LABS: Estimated Average Glucose 335 mg/dl; Hemoglobin A1C 13.3 %
[2017-10-15 11:48] LABS: Bilirubin,Total 0.3 mg/dL (0.3-1.0)
[2017-10-15 12:03] LABS: HIV-1&2 Antibody & p24 Ag Nonreactive (Nonreactive); Hepatitis A Antibody IgM Nonreactive (Nonreactive); Hepatitis B Core IgM Nonreactive (Nonreactive); Hepatitis B Surface Antigen Nonreactive (Nonreactive)
[2017-10-15 12:29] LABS: Hepatitis C Virus Antibody Reactive (Nonreactive)
[2017-10-15] MEDS: Insulin LISPRO 300 UNITS/3 ML VIAL SQ SCH ×3 (13:00→20:48)
[2017-10-15] MEDS ORDERED: Lidocaine 1% 20 ML MDV INFILT ONE (13:32)
--- NOTE | 2017-10-15 15:26 | General Surgery Procedure Note ---
Date of procedure: 10/15/17 Pre-op diagnosis: Bilateral neck abscess Post-op diagnosis: same Procedure: After informed consent was obtained and timeout completed, the patient's left neck was prepped and draped. The area was localized with 6 ML's of 1%lidocaine. After achieving appropriate localization, a 1 cm incision was made over the most fluctuant area using a size 11 blade. There was immediate return of purulent drainage (small amount). The cavity was further opened and decompressed using hemostats. Gram stain, aerobic, and anaerobic cultures were obtained. The cavity was then packed with 1/4 inch iodoform gauze and covered with a dry dressing. After informed consent was obtained and timeout completed, the patient's right neck was prepped and draped. The area was localized with 6 ML's of 1%lidocaine. After achieving appropriate localization, a 1 cm incision was made over the most fluctuant area using a size 11 blade. There was immediate return of purulent drainage (small amount). The cavity was further opened and decompressed using hemostats. Gram stain, aerobic, and anaerobic cultures were obtained. The cavity was then packed with 1/4 inch iodoform gauze and covered with a dry dressing. Complications: No immediate complications Anesthesia: local Surgeon: Maria Esther Deleon Estimated blood loss (cc): 1 Pathology: other (Aerobic cultures, aerobic cultures, Gram stain) Condition: stable Disposition: no change
[2017-10-15] MEDS: traMADol 50 MG TABLET PO PRN (16:07)
[2017-10-15] MEDS: Insulin DETEMIR 100 UNIT/ML X5UNITS SQ SCH (20:51)
[2017-10-15] MEDS ORDERED: Insulin DETEMIR 100 UNIT/ML X5UNITS SQ SCH (21:00)
[2017-10-16] MEDS: *HR* Enoxaparin 40 MG/0.4 ML SYRINGE SQ SCH (05:04)
[2017-10-16] MEDS: Insulin LISPRO 300 UNITS/3 ML VIAL SQ SCH ×4 (09:32→23:02)
[2017-10-16] MEDS: traMADol 50 MG TABLET PO PRN ×2 (09:35→20:05)
[2017-10-16 10:48] LABS: Basophils % 0.6 %; Eosinophils % 0.7 %; Hematocrit 33.2 % (37.5-50.1); Hemoglobin 10.9 g/dL (12.9-16.9); Immature Granulocytes % 0.4 % (0-4); Lymphocytes % 36.8 %; Mean Corpuscular HGB Conc 32.8 g/dL (31.6-35.5); Mean Corpuscular Hemoglobin 27.3 pg (28.0-33.3); Mean Corpuscular Volume 83.2 fL (83.0-100.0); Mean Platelet Volume 10.5 fL (9.4-12.4); Monocytes # 0.5 K/mcL (0.0-1.3); Monocytes % 9.5 %; Neutrophils # 2.8 K/mcL (1.6-8.9); Platelet Count 236 K/mcL (140-400); Red Blood Count 3.99 M/mcL (4.19-5.50); Red Cell Distribution Width 13.6 % (11.5-14.5)
[2017-10-16 11:21] LABS: BUN/Creatinine Ratio 24 (6-26); Blood Urea Nitrogen 13 mg/dL (8-23); Calcium 8.2 mg/dL (8.6-10.3); Carbon Dioxide 28 mEq/L (23-29); Chloride 103 mEq/L (98-107); Glucose 213 mg/dL (70-105); Osmolality,Calculated 284 (280-300); Potassium 3.9 mEq/L (3.5-5.1); Sodium 134 mEq/L (136-145); eGFR For African Americans > 60 (> 60); eGFR For Non-African Americans > 60 (> 60)
--- NOTE | 2017-10-16 12:41 | General Surgery Progress Note ---
Date of Encounter: 10/16/17 Time of Encounter: 12:25 - Assessment and Plan (1) Neck abscess Current Visit: Yes Status: Acute s/p BL I/D neck abscess 10/15/2017. Bilateral Gram stain negative. IV antibiotics per primary team. Bilateral neck wounds with packing in place. No drainage on the left. Small amount of cloudy drainage on the right. Bilateral areas with surrounding erythema. No new areas of fluctuance noted. Bilateral neck wounds with pink wound beds. Packing replaced with 1/4 inch plain gauze. Covered with a dry dressing. Patient tolerated well. Patient states at home "Christiano" will manage his packing. Informed patient that Christiano will need to be present and be observed changing the packing by bedside RN prior to DC. If this is unable to be accomplished, patient will need home healthcare referral for wound care. Patient states his last tetanus update was one year ago and further states he had his tetanus updated at that time due to "I stepped on something." No records are available for review. Immunization status will be updated. No indication for repeat tetanus booster at this time. Surgery will sign off at this time. Thank you for allowing us to participate in [facility]. Please call with further needs or questions. Plan: continue daily wound care: removed dressing and packing. Shower with antibacterial soap. Repacked with 1/4 inch plain gauze. Tape to secure. (2) Heroin abuse Current Visit: Yes Status: Chronic Subjective Patient reports: no new complaints, feels better, still having pain, pain is less, afebrile Objective Vital Signs - Last 8 Hours Temp Pulse Resp BP Pulse Ox 10/16/17 07:13 98.6 F 65 16 106/63 96 Intake and Output 10/15/17 10/16/17 10/16/17 23:59 07:59 15:59 Intake Total 1240 / 1240 490 / 490 240 / 240 Output Total 0 / 0 0 / 0 Balance 1240 / 1240 490 / 490 240 / 240 Intake: IV Fluids 1000 / 1000 250 / 250 0.9 % Sodium Chloride 1,000 ML 1000 / 1000 @ 100 mls/hr IVC .Q10H VLADIMIR Rx#: [id number] Vancocin 1,000 MG In 0.9 % 250 / 250 Sodium Chloride 250 ML @ 167 mls/hr IVPB Q12H VLADIMIR Rx#: [id number] Oral 240 / 240 240 / 240 240 / 240 Output: Urine 0 / 0 0 / 0 Other: Meal Dinner Percent of Meal Consumed 100% # Voids 1 1 # Bowel Movements 0 0 0 Weight 72.121 kg 72.076 kg Blood Glucose* 124 244 101 Patient Weight 10/16/17 23:59 Weight 72.076 kg - General physical appearance no distress - Eyes normal ocular movement - Neck Neck exam: no masses, no venous distension lymphadenopathy: bilateral - Respiratory normal expansion, normal respiratory effort, clear to auscultation - Cardiovascular Cardiovascular exam: Present: RRR - Abdomen Hernia: none - Incision Incision: Present: open - Integumentary other (No new findings) - Neurologic normal coordination, normal sensation - Musculoskeletal normal gait, normal posture - Psychiatric oriented to time, oriented to person, oriented to place, speech is normal, memory intact - Labs 10/16/17 10:33 10/16/17 10:33 Diabetes panel 10/16/17 Range/Units 10:33 Sodium 134 L (136-145) mEq/L Potassium 3.9 (3.5-5.1) mEq/L Chloride 103 (98-107) mEq/L Carbon Dioxide 28 (23-29) mEq/L BUN 13 (8-23) mg/dL Creatinine 0.55 L (0.70-1.30) mg/dL Glucose 213 H (70-105) mg/dL Calcium 8.2 L (8.6-10.3) mg/dL Calcium panel 10/16/17 Range/Units 10:33 Calcium 8.2 L (8.6-10.3) mg/dL Pituitary panel 10/16/17 Range/Units 10:33 Sodium 134 L (136-145) mEq/L Potassium 3.9 (3.5-5.1) mEq/L Chloride 103 (98-107) mEq/L Carbon Dioxide 28 (23-29) mEq/L BUN 13 (8-23) mg/dL Creatinine 0.55 L (0.70-1.30) mg/dL Glucose 213 H (70-105) mg/dL Calcium 8.2 L (8.6-10.3) mg/dL Adrenal panel 10/16/17 Range/Units 10:33 Sodium 134 L (136-145) mEq/L Potassium 3.9 (3.5-5.1) mEq/L Chloride 103 (98-107) mEq/L Carbon Dioxide 28 (23-29) mEq/L BUN 13 (8-23) mg/dL Creatinine 0.55 L (0.70-1.30) mg/dL Glucose 213 H (70-105) mg/dL Calcium 8.2 L (8.6-10.3) mg/dL Consult Discharge Plan - Plan Additional Instructions: continue daily wound care: removed dressing and packing. Shower with antibacterial soap. Repack with 1/4 inch plain gauze. Tape to secure. Referrals: NONE,PCP [Primary Care Provider] - Marta Kothari, [employer] [Advanced Practice Nurse] - 10/24/17 8:00 am Prescriptions: Adhesive Tape [Paper Tape] 1 each TP QDPC #1 tape Polyhexam Biguan/Gauze Bandage [Curity Amd 4"X4" Non-Woven] 4 each TP QDPC #40 sponge Polyhexam Biguan/Gauze Bandage [Curity Amd Packing Strips] 2 each TP QDPC #1 bottle
--- NOTE | 2017-10-16 17:44 | Internal Med Progress Note ---
Date of Encounter: 10/16/17 Time of Encounter: 11:00 - Assessment and plan (1) Neck abscess Current Visit: Yes Status: Acute Assessment and plan: Surgery consulted for recommendations for incision and drainage which was done on 10/15/17 Recommendations for daily wound care with removing dressing and packing Continue IV antibiotics until culture results known (2) Heroin abuse Current Visit: Yes Status: Chronic Assessment and plan: Discussed with patient about the help for addiction wind farm operations manager also consulted (3) DM (diabetes mellitus) Current Visit: No Status: Acute Assessment and plan: Controlled; continue basal and sliding scale insulin Qualifiers: Diabetes mellitus type: type 2 Diabetes mellitus halfway insulin use: without exterminator helper use Diabetes mellitus complication status: without complication Qualified Code(s): E11.9 - Type 2 diabetes mellitus without complications (4) DVT prophylaxis Current Visit: No Status: Acute Assessment and plan: Subcutaneous Lovenox - Subjective Interval history: s/p BL I/D neck abscess 10/15/2017. She reported yellow pus and drainage for the last several days due to IV drug use in the neck region - Constitutional Vitals: Temp Pulse Resp BP Pulse Ox 98.6 F 82 16 127/80 90 10/16/17 14:46 10/16/17 14:46 10/16/17 14:46 10/16/17 14:46 10/16/17 14:46 General appearance: Present: no acute distress - Respiratory Respiratory exam: Present: CTAB. Absent: accessory muscle use, rales, rhonchi, wheezes - Cardiovascular Cardiovascular exam: Present: RRR, +S1, +S2. Absent: diastolic murmur, gallop, rubs, systolic murmur - Skin Skin exam: Present: dry (Bandage in place which is dry), intact Internal Medicine: Result - Labs CBC & Chem 7: 10/16/17 10:33 10/16/17 10:33 Labs: Short CBC 10/16/17 Range/Units 10:33 WBC 5.4 (4.3-11.1) K/mcL Hgb 10.9 L (12.9-16.9) g/dL Hct 33.2 L (37.5-50.1) % Plt Count 236 (140-400) K/mcL Neutrophils # 2.8 (1.6-8.9) K/mcL BMP 10/16/17 10:33 Sodium 134 L Potassium 3.9 Chloride 103 Carbon Dioxide 28 BUN 13 Creatinine 0.55 L Glucose 213 H Calcium 8.2 L - ABG Interpretation ABG results: PT/INR, D-dimer PT 12.2 Seconds (9.4-12.1) H 10/15/17 10:06 Consult Discharge Plan - Plan Additional Instructions: continue daily wound care: removed dressing and packing. Shower with antibacterial soap. Repack with 1/4 inch plain gauze. Tape to secure. Referrals: Marta Kothari CNP [Advanced Practice Nurse] - 10/24/17 8:00 am NONE,PCP [Primary Care Provider] - Prescriptions: Adhesive Tape [Paper Tape] 1 each TP QDPC #1 tape Polyhexam Biguan/Gauze Bandage [Curity Amd 4"X4" Non-Woven] 4 each TP QDPC #40 sponge Polyhexam Biguan/Gauze Bandage [Curity Amd Packing Strips] 2 each TP QDPC #1 bottle
[2017-10-16] MEDS: Insulin DETEMIR 100 UNIT/ML X5UNITS SQ SCH (23:01)
[2017-10-17] MEDS: *HR* Enoxaparin 40 MG/0.4 ML SYRINGE SQ SCH (05:36)
[2017-10-17] MEDS: Insulin LISPRO 300 UNITS/3 ML VIAL SQ SCH ×4 (09:03→21:46)
[2017-10-17 10:34] LABS: Basophils # 0.1 K/mcL (0.0-0.2); Basophils % 0.9 %; Eosinophils # 0.1 K/mcL (0.0-0.6); Eosinophils % 0.9 %; Hematocrit 34.7 % (37.5-50.1); Hemoglobin 11.2 g/dL (12.9-16.9); Immature Granulocytes % 0.4 % (0-4); Lymphocytes # 2.2 K/mcL (0.6-4.6); Lymphocytes % 39.1 %; Mean Corpuscular HGB Conc 32.3 g/dL (31.6-35.5); Mean Corpuscular Volume 83.6 fL (83.0-100.0); Mean Platelet Volume 11.1 fL (9.4-12.4); Monocytes # 0.5 K/mcL (0.0-1.3); Monocytes % 8.4 %; Neutrophils # 2.8 K/mcL (1.6-8.9); Platelet Count 260 K/mcL (140-400); Red Blood Count 4.15 M/mcL (4.19-5.50); Red Cell Distribution Width 13.5 % (11.5-14.5); Segmented Neutrophils % 50.3 %
[2017-10-17] MEDS: traMADol 50 MG TABLET PO PRN (10:46)
[2017-10-17 11:00] LABS: BUN/Creatinine Ratio 22 (6-26); Blood Urea Nitrogen 13 mg/dL (8-23); Calcium 8.2 mg/dL (8.6-10.3); Carbon Dioxide 28 mEq/L (23-29); Chloride 101 mEq/L (98-107); Glucose 270 mg/dL (70-105); Osmolality,Calculated 290 (280-300); Potassium 4.1 mEq/L (3.5-5.1); Sodium 135 mEq/L (136-145); eGFR For African Americans > 60 (> 60); eGFR For Non-African Americans > 60 (> 60)
[2017-10-17 17:46] LABS: Amphetamines NEGATIVE ng/mL (Cutoff 30); Barbiturates NEGATIVE ng/mL (Cutoff 75); Benzodiazepines NEGATIVE ng/mL (Cutoff 75); Cocaine NEGATIVE ng/mL (Cutoff 30); Methamphetamines NEGATIVE ng/mL (Cutoff 30); Opiates NEGATIVE ng/mL (Cutoff 30); Phencyclidine NEGATIVE ng/mL (Cutoff 15)
--- NOTE | 2017-10-17 18:29 | Internal Med Progress Note ---
Date of Encounter: 10/17/17 Time of Encounter: 11:00 - Assessment and plan (1) Neck abscess Current Visit: Yes Status: Acute Assessment and plan: Surgery consulted for recommendations for incision and drainage which was done on 10/15/17 Recommendations for daily wound care with removing dressing and packing Continue IV antibiotics until sensitivities for culture results known (2) Heroin abuse Current Visit: Yes Status: Chronic Assessment and plan: Discussed with patient about the help for addiction manager wealth management also consulted (3) DM (diabetes mellitus) Current Visit: No Status: Acute Assessment and plan: Controlled; continue basal and sliding scale insulin Qualifiers: Diabetes mellitus type: type 2 Diabetes mellitus usp insulin use: without usp use Diabetes mellitus complication status: without complication Qualified Code(s): E11.9 - Type 2 diabetes mellitus without complications (4) DVT prophylaxis Current Visit: No Status: Acute Assessment and plan: Subcutaneous Lovenox - Subjective Interval history: s/p BL I/D neck abscess 10/15/2017. Awaiting final sensitivities of culture results - Constitutional Vitals: Temp Pulse Resp BP Pulse Ox 98.1 F 75 18 104/52 96 10/17/17 15:25 10/17/17 15:25 10/17/17 15:25 10/17/17 15:25 10/17/17 15:25 General appearance: Present: no acute distress - Neck Neck exam general surgery: Absent: normal inspection (Bandage dry and intact) - Respiratory Respiratory exam: Present: CTAB. Absent: accessory muscle use, rales, rhonchi, wheezes - Cardiovascular Cardiovascular exam: Present: RRR, +S1, +S2. Absent: diastolic murmur, gallop, rubs, systolic murmur Internal Medicine: Result - Labs CBC & Chem 7: 10/17/17 09:49 10/17/17 09:49 Labs: Short CBC 10/17/17 Range/Units 09:49 WBC 5.6 (4.3-11.1) K/mcL Hgb 11.2 L (12.9-16.9) g/dL Hct 34.7 L (37.5-50.1) % Plt Count 260 (140-400) K/mcL Neutrophils # 2.8 (1.6-8.9) K/mcL BMP 10/17/17 09:49 Sodium 135 L Potassium 4.1 Chloride 101 Carbon Dioxide 28 BUN 13 Creatinine 0.59 L Glucose 270 H Calcium 8.2 L - ABG Interpretation ABG results: PT/INR, D-dimer PT 12.2 Seconds (9.4-12.1) H 10/15/17 10:06 Consult Discharge Plan - Plan Additional Instructions: continue daily wound care: removed dressing and packing. Shower with antibacterial soap. Repack with 1/4 inch plain gauze. Tape to secure. Referrals: Marta Kothari, [employer] CONSULTANT [Advanced Practice Nurse] - 10/24/17 8:00 am NONE,PCP [Primary Care Provider] - Prescriptions: Adhesive Tape [Paper Tape] 1 each TP QDPC #1 tape Polyhexam Biguan/Gauze Bandage [Curity Amd 4"X4" Non-Woven] 4 each TP QDPC #40 sponge Polyhexam Biguan/Gauze Bandage [Curity Amd Packing Strips] 2 each TP QDPC #1 bottle
[2017-10-17] MEDS: Insulin DETEMIR 100 UNIT/ML X5UNITS SQ SCH (21:47)
[2017-10-18] MEDS: *HR* Enoxaparin 40 MG/0.4 ML SYRINGE SQ SCH (06:28)
[2017-10-18] MEDS: Insulin LISPRO 300 UNITS/3 ML VIAL SQ SCH ×2 (08:58→13:33)
[2017-10-18 09:46] VITALS: BP 145/90
[2017-10-18 10:13] LABS: Basophils # 0.1 K/mcL (0.0-0.2); Basophils % 0.9 %; Eosinophils % 0.7 %; Hematocrit 38.4 % (37.5-50.1); Hemoglobin 12.5 g/dL (12.9-16.9); Immature Granulocytes % 0.4 % (0-4); Lymphocytes # 2.6 K/mcL (0.6-4.6); Lymphocytes % 45.2 %; Mean Corpuscular HGB Conc 32.6 g/dL (31.6-35.5); Mean Corpuscular Hemoglobin 26.9 pg (28.0-33.3); Mean Corpuscular Volume 82.8 fL (83.0-100.0); Mean Platelet Volume 10.4 fL (9.4-12.4); Monocytes # 0.4 K/mcL (0.0-1.3); Monocytes % 7.4 %; Neutrophils # 2.6 K/mcL (1.6-8.9); Platelet Count 277 K/mcL (140-400); Red Blood Count 4.64 M/mcL (4.19-5.50); Red Cell Distribution Width 14.1 % (11.5-14.5); Segmented Neutrophils % 45.4 %
[2017-10-18 10:27] LABS: BUN/Creatinine Ratio 27 (6-26); Blood Urea Nitrogen 14 mg/dL (8-23); Calcium 8.3 mg/dL (8.6-10.3); Carbon Dioxide 24 mEq/L (23-29); Chloride 105 mEq/L (98-107); Glucose 239 mg/dL (70-105); Osmolality,Calculated 286 (280-300); Sodium 134 mEq/L (136-145); eGFR For African Americans > 60 (> 60); eGFR For Non-African Americans > 60 (> 60)
--- NOTE | 2017-10-18 10:59 | Discharge Summary ---
- NOTES TO OUTPATIENT PROVIDER Notes to Outpatient Provider: Patient will need blood glucose monitor Orders not resulted at time of discharge: Pending orders 10/15/17 10:06 Serum Drug Screen [Drug Screen 9 Reflex Conf Qnt] Routine 10/15/17 15:10 Culture,Anaerobic [RM] Stat Culture,Anaerobic [RM] Stat Date of Encounter: 10/18/17 Time of Encounter: 10:00 - Discharge Diagnosis (1) Neck abscess Priority: Primary Status: Acute (2) Heroin abuse Priority: Primary Status: Chronic (3) DM (diabetes mellitus) Priority: Secondary Status: Acute Qualifiers: Diabetes mellitus type: type 2 Diabetes mellitus half-way insulin use: without intermediate frame tender use Diabetes mellitus complication status: without complication Qualified Code(s): E11.9 - Type 2 diabetes mellitus without complications Hospital course: Patient is a 62-year-old male with past medical history significant for heroin IV drug abuse who presents to the ER on 10/15/17 due to neck pain. Patient admits to injecting heroin into his neck bilaterally. He reports that he developed symptoms approximately one week ago with drainage from the area. He presented to ER 10/12 for abscess but left AMA because he was in withdrawals but this time, he does not intend to leave AMA. In ER, CT of neck showed 3.8 cm mass consistent with abscess on left and 1.9 cm superficial mass on right consistent with abscess. Patient was admitted to the medical surgical floor for management of neck abscess. Surgery was consulted and I incision and drainage was done. Patient was treated on IV antibiotics. Cultures were drawn which were positive for staph and sensitivities known. Patient will be discharged to continue a seven-day course of Bactrim. - Time Spent with Patient Total time spent providing and/or coordinating discharge services: - Discharge Medications Prescriptions: Adhesive Tape [Paper Tape] 1 each TP QDPC #1 tape Polyhexam Biguan/Gauze Bandage [Curity Amd 4"X4" Non-Woven] 4 each TP QDPC #40 sponge Polyhexam Biguan/Gauze Bandage [Curity Amd Packing Strips] 2 each TP QDPC #1 bottle Sulfamethoxazole/Trimeth DS [Bactrim DS] 1 each PO BID #14 tablet Home Medications: Adhesive Tape [Paper Tape] 1 each TP QDPC #1 tape 10/16/17 [Rx] Polyhexam Biguan/Gauze Bandage [Curity Amd 4"X4" Non-Woven] 4 each TP QDPC #40 sponge 10/16/17 [Rx] Polyhexam Biguan/Gauze Bandage [Curity Amd Packing Strips] 2 each TP QDPC #1 bottle 10/16/17 [Rx] Sulfamethoxazole/Trimeth DS [Bactrim DS] 1 each PO BID #14 tablet 10/18/17 [Rx] Allergies/Adverse Reactions: 3 Allergy/AdvReac Type Severity Reaction Status Date / Time No Known Allergies Allergy Verified 10/08/17 10:41 Date of admission: 10/15/17 03:38 Primary care physician: PCP NONE Consults: 10/15/17 08:16 Consult to Surgery [CONS] Routine Consulting Provider: Surgery [facility] Reason for Consult: Supraclavicular superficial abscess Call Completed: Yes - Constitutional Vitals: Temp Pulse Resp BP Pulse Ox 97.6 F 72 16 145/90 97 10/18/17 09:00 10/18/17 09:00 10/18/17 09:00 10/18/17 09:00 10/18/17 09:00 General appearance: Present: no acute distress - Respiratory Respiratory exam: Present: CTAB. Absent: accessory muscle use, rales, rhonchi, wheezes - Cardiovascular Cardiovascular exam: Present: RRR, +S1, +S2. Absent: diastolic murmur, gallop, rubs, systolic murmur - Patient Status Disposition: Home, Self-Care Condition: Good - Discharge Instructions Follow Up With: Marta Kothari SERVICE [employer] LAYER [Advanced Practice Nurse] - 10/24/17 8:00 am NONE,PCP [Primary Care Provider] - Additional Instructions: continue daily wound care: removed dressing and packing. Shower with antibacterial soap. Repack with 1/4 inch plain gauze. Tape to secure.
[2017-10-18] MEDS ORDERED: Aminoglycoside Consult 1 EACH MC ONE (16:13)
[2017-10-19 14:27] LABS: Methadone POSITIVE ng/mL (Cutoff 40)
[2017-10-20 09:37] LABS: EDDP Confirmation 27 ng/mL; Methadone Confirmation 192 ng/mL
== END 2017-10-18 16:14 | disposition home or self-care (01) | DRG 603 ==
LOC: 2SOUTHHOLD 17:26 → EMEROO 17:26 → 2SOUTHHOLD 10-15 02:53 → SUATTDRO 10-15 03:38 → 3ANU 10-15 16:00
PROVIDERS: ADMIT Internal Medicine Cardiovascular Disease; ATTEND Hospitalist